=== PATIENT | female | born 1995 | race Hispanic/Latino ===

== ENCOUNTER 2025-09-20 21:22 | Emergency (ER) | payer SELFPAY ==
[~2025-09-20] VITALS: Ht 162.6 cm; Wt 63.0 kg
--- NOTE | 2025-09-20 21:35 | NUR ---
UA CUP PROVIDED
[2025-09-20] MEDS ORDERED: DOCO2CRE TP (21:51)
[2025-09-20] MEDS ORDERED: ACYC-429 PO (21:51)
[2025-09-20] MEDS ORDERED: IBUP-2733 PO (21:51)
--- NOTE | 2025-09-20 21:52 | ERN ---
ED Note History of Present Illness Stated Complaint: BUMPS TO LOWER LIP Chief Complaint: Other Problems Time Seen by MD: 21:33 Dictation: Patient is a 29-year-old female who presented to the ER complaining of burning, pain to the lower lip x2 days. Allergies: Coded Allergies: No Known Allergies (Unverified Allergy, Unknown, 09/20/25) Home Meds Active Scripts Ibuprofen (Ibuprofen) 200 Mg Tablet, 2 TAB PO QID for pain or fever for 5 Days, #40 TAB 0 Refills Prov:CRYSTAL DAVIS MD 09/20/25 Acyclovir (Acyclovir) 400 Mg Tablet, 1 TAB PO TID for 5 Days, #15 TAB 0 Refills Prov:CRYSTAL DAVIS MD 09/20/25 Docosanol (Abreva) 10 % Cream..g., 1 APPL TP 5XDAY for 5 Days, #2 GM 0 Refills Prov:CRYSTAL DAVIS MD 09/20/25 Past Medical History Past Medical History: Anemia Surgical History: None LMP: Sep 19, 2025 Review of System Dictation NEGATIVE EXCEPT PER HPI Lips pain, swelling Constitutional: Negative for fever,chills, and weight loss Eyes: Negative for injury, pain,redness, and discharge ENT: Negative for injury,pain or swelling Cardiovascular: denies chest pain, palpitations, and edema Respiratory: Negative for shortness of breath, cough, and wheezing, Abdomen/GI: Negative for abdominal pain, nausea, vomiting, diarrhea, and constipation Back: Negative for injury and pain : Negative for injury, bleeding and discharge MS/Extremity: Negative for injury and deformity Skin: Negative for rash, and discoloration Neuro: Negative for headache, weakness, numbness, tingling, and seizure Psych: Negative for suicide ideation, homicidal ideation, and hallucinations Initial Vital Sign VS Vital Signs Date Time Temp Pulse Resp B/P (MAP) Pulse Ox O2 Delivery O2 Flow Rate FiO2 09/20/25 21:33 97.5 66 18 117/74 100 Room Air Physical Exam Dictation General: awake, alert, NAD Head/Face: Normocephalic, atraumatic Eyes: PERRL, EOMI, vision at baseline ENT: oral cavity clear, TMs clear, no signs of infection, lower lip edema Neck: Trachea midline, supple, no nuchal rigidity Cardiovascular: RRR, normal S1/S2, No MRGs, no JVD Respiratory: CTAB, no respiratory distress, No rales or wheezes Abdomen: Soft , no tender Skin: Warm, dry, normal turgor, no rash MS/Extremity: Pulses equal, no cyanosis, neurovascular intact, FROM Neuro: COAx4, GCS 15, strength 5/5, CN 2-12 intact, normal cerebellar exam, normal gait, Psych: Normal behavior, mood, and affect normal ED Course ED Course Vital Signs Date Time Temp Pulse Resp B/P (MAP) Pulse Ox O2 Delivery O2 Flow Rate FiO2 09/20/25 21:33 97.5 66 18 117/74 100 Room Air Medical Decision Making MDM 29-year-old female with lower lip pain, edema. 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 1 APPL TP 5XDAY for 5 Days, #2 GM 0 Refills Prov: CRYSTAL DAVIS MD 09/20/25 Additional Instructions: RETURN TO ER FOR ANY ACUTE OR WORSENING SYMPTOMS. FOLLOW-UP IN 1-2 DAYS WITH PRIMARY PROVIDER FOR RECHECK OF TODAY'S SYMPTOMS. CRYSTAL DAVIS MD Sep 20, 2025 21:52
[2025-09-20 22:05] VITALS: BP 128/72; PULSE 80; RESP 20; TEMP 98; O2SAT 100
== END 2025-09-20 22:05 | disposition home or self-care (01) ==
LOC: EDH 21:22
DX: B00.1 Herpesviral vesicular dermatitis (principal)
CPT/HCPCS: 99283